=== PATIENT | male | born 1975 ===

== ENCOUNTER 2023-09-09 16:26 | Emergency (ER) | payer OTHER ==
[2023-09-09] MEDS: HYDROmorphone 0.5 MG/0.5 ML Syringe IVPUSH ONE ×2 (18:02→21:42)
[2023-09-09] MEDS: Iopamidol 612 MG/ML 100 ML Bottle IVPUSH ONE (18:24)
[2023-09-09 18:25] LABS: BASOPHILS PERCENT AUTO 0.1 % (0.0-1.0); EOSINOPHILS PERCENT AUTO 0.1 % (1.0-3.0); HEMOGLOBIN 15.3 g/dL (14.0-18.0); LYMPHOCYTES PERCENT AUTO 6.5 % (20.5-50.1); MEAN CORPUSCULAR HEMOGLOBIN 31.2 pg (27.0-34.0); MEAN CORPUSCULAR VOLUME 91.8 fL (80-100); MONOCYTES PERCENT AUTO 4.9 % (2-8); NEUTROPHILS PERCENT AUTO 88.4 % (42.2-75.2); PLATELET COUNT,PLT 226 10^3/uL (150-450)
[2023-09-09 18:39] LABS: ALANINE AMINOTRANSFERASE,ALT 58 U/L (16-63); ALKALINE PHOSPHATASE 65 U/L (46-116); AMYLASE 66 U/L (25-115); ANION GAP 15.9 mEq/L (7-13); ASPARTATE AMNIOTRANSFERASE,AST 35 U/L (15-37); BILIRUBIN DIRECT 0.2 mg/dL (0.0-0.2); BILIRUBIN INDIRECT 0.5; BILIRUBIN TOTAL 0.7 mg/dL (0.2-1.0); BLOOD UREA NITROGEN,BUN 22 mg/dL (7-18); CARBON DIOXIDE,CO2 26 mmol/L (21-32); CHLORIDE,CL 103 mmol/L (98-107); CREATININE 1.43 mg/dL (0.70-1.30); GLUCOSE RANDOM 119 mg/dL (70-99); LIPASE 22 U/L (16-77); POTASSIUM,K 3.9 mmol/L (3.5-5.1); SODIUM,NA 141 mmol/L (136-145)
[2023-09-09 18:44] LABS: ESTIMATED GFR 60 mL/min (>=60); INR 0.9 (0.9-1.2); PROTHROMBIN TIME 9.6 SEC (9.0-12.0)
[2023-09-09 19:21] LABS: APPEARANCE,URINE CLEAR (CLEAR); BILIRUBIN,URINE NEGATIVE (NEGATIVE); COLOR,URINE YELLOW (YELLOW); GLUCOSE,URINE NEGATIVE (NEGATIVE); KETONES,URINE TRACE (NEGATIVE); LEUKOCYTE ESTERASE,URINE NEGATIVE (NEGATIVE); NITRITE,URINE NEGATIVE (NEGATIVE); OCCULT BLOOD,URINE TRACE-INTACT (NEGATIVE); PROTEIN,URINE NEGATIVE (NEGATIVE); UROBILINOGEN,URINE 0.2 mg/dL (0.2-1.0)
[2023-09-09 19:36] LABS: BACTERIA,URINE FEW /HPF (0-FEW/HPF); EPITHELIAL CELLS,URINE RARE /HPF (NOT SEEN); MUCUS,URINE FEW /LPF (NOT SEEN); WBC,URINE 0-5 /HPF (0-5/HPF)
[2023-09-09] MEDS: Take Home: Acetaminophen/HYDROcodone 325-5 MG, 5 Tab Pack PO ONE ×2 (20:18)
[2023-09-09] MEDS: Ketorolac 30 MG/ML SDV IVPUSH ONE (20:56)
[2023-09-09] MEDS: Sodium Chloride 0.9% 1,000 ML IV ONE (21:42)
[2023-09-09] MEDS: Ciprofloxacin in D5W 400 MG in Premix Bag 1 BAG IV ONE (22:00)
[2023-09-09] MEDS: HYDROmorphone 0.5 MG/0.5 ML Syringe ONE (22:10)
[2023-09-09] MEDS: Ondansetron 4 MG/2 ML SDV IVPUSH ONE (23:10)
[2023-09-09] MEDS: HYDROmorphone 1 MG/ML Syringe IVPUSH ONE (23:11)
== END 2023-09-09 23:16 ==
LOC: DL.ED 16:26
DX: N13.2 Hydronephrosis with renal and ureteral calculous obstruction (principal); Z79.899 Other long term (current) drug therapy
CPT/HCPCS: 36415; 74177; 80048; 80076; 81001; 82150; 83690; 85025; 85610; 96365; 96375; 96376; 99285; 99285-25; A9270-GY; J0744; J1170; J1885; J2405; J7030; Q9967